=== PATIENT | male | born 1960 | race Caucasian/White ===

== ENCOUNTER 2019-02-23 14:37 | Inpatient (IN) | payer OTHER ==
[~2019-02-23] VITALS: Ht 182.9 cm; Wt 142.9 kg
[2019-02-23] MEDS ORDERED: fentaNYL INJECTION 100 MCG/2 ML AMP IVP ONE (14:45)
[2019-02-23] MEDS ORDERED: NS IV 1000 ML 1,000 ML IV SCH (14:45)
[2019-02-23] MEDS ORDERED: KETOROLAC 30 MG/ML VIAL IVP ONE (14:45)
--- NOTE | 2019-02-23 14:54 | ED Abdominal Pain ---
General Chief Complaint: Abdominal/GI Problems Stated Complaint: ABD/BACK PAIN Nursing Triage Note: TO TRIAGE WITH COMPLAINTS OF ABD PAIN THAT RADIATES INTO BACK STARTING WED. HX OF PANCREATITIS. Sepsis Screen: No Definite Risk Source of Information: Patient Exam Limitations: No Limitations History of Present Illness Date Seen by Provider: Feb 23, 2019 Time Seen by Provider: 14:52 Initial Comments To ER with reports of epigastric abdominal pain that radiates through to his back. This began about 48 hours ago and he does have associated nausea but no vomiting. He has a history of pancreatitis in the remote past without cause identified. This feels similar to that. He denies alcohol use. He is at his cholesterol checked and found to be on the low side. He denies fevers or chills. Primary care is Dr. Dumont. He rates his pain at 8.5 out of 10. Prior history of cholecystectomy Timing/Duration: 1-2 Days Severity/Quality: Moderate Location: Epigastric Radiation: Back Activities at Onset: None Associated Symptoms: Nausea/Vomiting Allergies and Home Medications Allergies Coded Allergies: No Known Drug Allergies (Unverified , 02/23/19) Patient Home Medication List Home Medication List Reviewed: Yes Review of Systems Review of Systems Constitutional: see HPI; No chills, No fever EENTM: No Symptoms Reported Respiratory: No Symptoms Reported Cardiovascular: No Symptoms Reported Gastrointestinal: See HPI, Abdominal Pain, Nausea Genitourinary: No Symptoms Reported Musculoskeletal: see HPI, back pain Skin: no symptoms reported Psychiatric/Neurological: No Symptoms Reported, Emotional Problems Hematologic/Lymphatic: No Symptoms Reported Past Sffbytv-Npglkz-Tepxth Hx Patient Social History Recent Foreign Travel: No Contact w/Someone Who Travel: No Recent Infectious Disease Expo: No Physical Exam Vital Signs Vital Signs - First Documented 02/23/19 14:40 Temp 98.7 Pulse 80 Resp 16 B/P (MAP) 199/87 (124) Pulse Ox 95 O2 Delivery Room Air Capillary Refill : Less Than 3 Seconds Height/Weight/BMI Height: 6'" Weight: 315lbs. oz. [id number]; BMI Method:Stated General Appearance: WD/WN, no apparent distress, other (no distress, obese, ambulatory to room 5, alert and oriented and pleasant) HEENT: PERRL/EOMI, normal ENT inspection Neck: non-tender, full range of motion Respiratory: chest non-tender, lungs clear, normal breath sounds, no respiratory distress Gastrointestinal: normal bowel sounds, soft, tenderness (epigastric) Extremities: normal range of motion, non-tender Neurologic/Psychiatric: alert, normal mood/affect, oriented x 3 Skin: normal color, warm/dry Focused Exam Lactate Level 02/23/19 16:10: Lactic Acid Level Laboratory Tests Test 02/23/19 16:10 Progress/Results/Core Measures Results/Orders Lab Results Laboratory Tests Test 02/23/19 14:55 02/23/19 16:10 Range/Units White Blood Count 25.0 H 4.3-11.0 10^3/uL Red Blood Count 5.80 4.35-5.85 10^6/uL Hemoglobin 17.6 13.3-17.7 G/DL Hematocrit 52 40-54 % Mean Corpuscular Volume 90 80-99 FL Mean Corpuscular Hemoglobin 30 25-34 PG Mean Corpuscular Hemoglobin Concent 34 32-36 G/DL Red Cell Distribution Width 14.7 H 10.0-14.5 % Platelet Count 251 130-400 10^3/uL Mean Platelet Volume 11.6 H 7.4-10.4 FL Neutrophils (%) (Auto) 89 H 42-75 % Lymphocytes (%) (Auto) 7 L 12-44 % Monocytes (%) (Auto) 4 0-12 % Eosinophils (%) (Auto) 0 0-10 % Basophils (%) (Auto) 0 0-10 % Neutrophils # (Auto) 22.3 H 1.8-7.8 X 10^3 Lymphocytes # (Auto) 1.6 1.0-4.0 X 10^3 Monocytes # (Auto) 1.1 H 0.0-1.0 X 10^3 Eosinophils # (Auto) 0.0 0.0-0.3 10^3/uL Basophils # (Auto) 0.0 0.0-0.1 10^3/uL Neutrophils % (Manual) 88 % Lymphocytes % (Manual) 7 % Monocytes % (Manual) 3 % Band Neutrophils 2 % Dohle Bodies SLIGHT Blood Morphology Comment NORMAL Prothrombin Time 13.2 12.2-14.7 SEC INR Comment 1.0 0.8-1.4 Activated Partial Thromboplast Time 30 24-35 SEC Sodium Level 137 135-145 MMOL/L Potassium Level 3.5 L 3.6-5.0 MMOL/L Chloride Level 97 L 98-107 MMOL/L Carbon Dioxide Level 27 21-32 MMOL/L Anion Gap 13 5-14 MMOL/L Blood Urea Nitrogen 8 7-18 MG/DL Creatinine 0.82 0.60-1.30 MG/DL Estimat Glomerular Filtration Rate > 60 BUN/Creatinine Ratio 10 Glucose Level 119 H 70-105 MG/DL Calcium Level 10.5 H 8.5-10.1 MG/DL Corrected Calcium 10.1 8.5-10.1 MG/DL Magnesium Level 2.1 1.8-2.4 MG/DL Total Bilirubin 0.8 0.1-1.0 MG/DL Aspartate Amino Transf (AST/SGOT) 18 5-34 U/L Alanine Aminotransferase (ALT/SGPT) 28 0-55 U/L Alkaline Phosphatase 83 40-136 U/L Myoglobin 41.6 10.0-92.0 NG/ML Troponin I < 0.028 <0.028 NG/ML Total Protein 8.8 H 6.4-8.2 GM/DL Albumin 4.5 3.2-4.5 GM/DL Amylase Level 417 H 25-125 U/L Lipase 1071 H 8-78 U/L My Orders Orders - MELISSA DELVALLE CUSTOMER SERVICES COORDINATOR Cbc With Automated Diff (02/23/19 14:40) Magnesium (02/23/19 14:40) Chest 1 View, Ap/Pa Only (02/23/19 14:40) Cardiac Profile 1 (02/23/19 14:40) Comprehensive Metabolic Panel (02/23/19 14:40) Myoglobin Serum (02/23/19 14:40) Protime With Inr (02/23/19 14:40) Partial Thromboplastin Time (02/23/19 14:40) O2 (02/23/19 14:40) Monitor-Rhythm Ecg Trace Only (02/23/19 14:40) Lipid Panel (02/24/19 06:00) Ed Iv/Invasive Line Start (02/23/19 14:40) Lipase (02/23/19 14:40) Amylase (02/23/19 14:40) Ct Abdomen/Pelvis W (02/23/19 14:45) Ketorolac Injection (Toradol Injection) (02/23/19 14:45) Fentanyl Injection (Sublimaze Injection (02/23/19 14:45) Ns Iv 1000 Ml (Sodium Chloride 0.9%) (02/23/19 14:45) Ondansetron Injection (Zofran Injectio (02/23/19 15:00) Manual Differential (02/23/19 14:55) Blood Culture (02/23/19 15:45) Lactic Acid Analyzer (02/23/19 15:45) Medications Given in ED Current Medications Medications Dose Ordered Sig/Chadd Route Start Time Stop Time Status Last Admin Dose Admin Fentanyl Citrate 50 mcg ONCE ONCE IVP 02/23/19 14:45 02/23/19 14:46 DC 02/23/19 15:03 50 MCG Ketorolac Tromethamine 15 mg ONCE ONCE IVP 02/23/19 14:45 02/23/19 14:46 DC 02/23/19 15:04 15 MG Ondansetron HCl 8 mg ONCE ONCE IVP 02/23/19 15:00 02/23/19 15:01 DC 02/23/19 15:04 8 MG Vital Signs/I&O 02/23/19 14:40 Temp 98.7 Pulse 80 Resp 16 B/P (MAP) 199/87 (124) Pulse Ox 95 O2 Delivery Room Air Blood Pressure Mean: 124 Departure Communication (Admissions) 1618-after Zofran, 15 mg Toradol and 50 Tray grams of fentanyl he states his pain is overall much better controlled. He remained sinus rhythm at 71. Will admit to Dr. De La Vega and consult surgery. She agrees to admit, I also notified Dr. Fletcher who agrees to consult and recommends clear liquid diet. Impression Primary Impression: Pancreatitis Qualified Codes: K85.00 - Idiopathic acute pancreatitis without necrosis or infection Disposition: ADMITTED INPATIENT Condition: Stable Admissions Decision to Admit Reason: Admit from ER (General) Decision to Admit/Date: Feb 23, 2019 Time/Decision to Admit Time: 16:19 Departure-Patient Inst. Referrals: CHANTELL DUMONT MD (PCP) Primary Care Physician MELISSA DELVALLE APRN Feb 23, 2019 14:54
[2019-02-23] MEDS ORDERED: ONDANSETRON 4 MG/2 ML (SDV) Z0FRAN IVP ONE (15:00)
[2019-02-23 15:04] LABS: BASOPHILS % (AUTO) 0 % (0-10); EOSINOPHILS % (AUTO) 0 % (0-10); HEMATOCRIT 52 % (40-54); HEMOGLOBIN 17.6 G/DL (13.3-17.7); LYMPHOCYTES # (AUTO) 1.6 X 10^3 (1.0-4.0); LYMPHOCYTES % (AUTO) 7 % (12-44); MEAN CORPUSCULAR HEMOGLOBIN 30 PG (25-34); MEAN CORPUSCULAR HGB CONC 34 G/DL (32-36); MEAN CORPUSCULAR VOLUME 90 FL (80-99); MEAN PLATELET VOLUME 11.6 FL (7.4-10.4); MONOCYTES # (AUTO) 1.1 X 10^3 (0.0-1.0); MONOCYTES % (AUTO) 4 % (0-12); NEUTROPHILS # (AUTO) 22.3 X 10^3 (1.8-7.8); NEUTROPHILS % (AUTO) 89 % (42-75); PLATELET COUNT 251 10^3/uL (130-400); RED CELL DISTRIBUTION WIDTH 14.7 % (10.0-14.5)
[2019-02-23 15:22] LABS: PROTHROMBIN TIME PATIENT 13.2 SEC (12.2-14.7)
[2019-02-23 15:26] LABS: ALANINE AMINOTRANSFERASE 28 U/L (0-55); ALBUMIN 4.5 GM/DL (3.2-4.5); ALKALINE PHOSPHATASE 83 U/L (40-136); AMYLASE 417 U/L (25-125); BILIRUBIN,TOTAL 0.8 MG/DL (0.1-1.0); BUN/CREATININE RATIO 10; CALCIUM 10.5 MG/DL (8.5-10.1); CARBON DIOXIDE 27 MMOL/L (21-32); CHLORIDE 97 MMOL/L (98-107); CREATININE SERUM 0.82 MG/DL (0.60-1.30); GFR ESTIMATED > 60; GLUCOSE 119 MG/DL (70-105); LIPASE 1071 U/L (8-78); MAGNESIUM 2.1 MG/DL (1.8-2.4); POTASSIUM 3.5 MMOL/L (3.6-5.0); SODIUM 137 MMOL/L (135-145); TOTAL PROTEIN 8.8 GM/DL (6.4-8.2)
[2019-02-23 15:48] LABS: BAND NEUTROPHILS 2 %; LYMPHOCYTES % (MANUAL) 7 %; MONOCYTES % (MANUAL) 3 %; NEUTROPHILS % (MANUAL) 88 %; RBC MORPH NORMAL
--- NOTE | 2019-02-23 16:09 | Diagnostic Imaging Report ---
INDICATION: Epigastric pain. FINDINGS: There is no evidence for basilar pleural fluid. There is no free air beneath the diaphragms. No alveolar consolidation. Heart size is within normal limits. No focal consolidation. IMPRESSION: No acute finding. Dictated by: Dictated on workstation # [id number]
--- NOTE | 2019-02-23 16:09 | Diagnostic Imaging Report ---
PROCEDURE: CT abdomen and pelvis with contrast. TECHNIQUE: Multiple contiguous axial images were obtained through the abdomen and pelvis after administration of intravenous contrast. Auto Exposure Controls were utilized during the CT exam to meet ALARA standards for radiation dose reduction. INDICATION: Epigastric pain x2 days. FINDINGS: Lung bases are clear. There is fatty infiltration of the liver. Gallbladder is surgically absent. There is edema around the pancreas and the anterior pararenal space suggesting acute pancreatitis. Spleen is not enlarged. Adrenals are normal. Kidneys unremarkable. There is minimal calcific atherosclerosis of the aorta. Small bowel is not dilated. Colon is decompressed. There are a few colonic diverticuli but no evidence of diverticulitis. There is a small umbilical hernia containing fat. Prostate is not enlarged. Urinary bladder appears normal. IMPRESSION: Acute pancreatitis. There are no pathologic fluid collections. Dictated by: Dictated on workstation # [id number]
[2019-02-23 16:52] LABS: CHOLESTEROL 139 MG/DL (< 200); HDL CHOLESTEROL 45 MG/DL (40-60); TRIGLYCERIDES 58 MG/DL (<150); VLDL CHOLESTEROL 12 MG/DL (5-40)
[2019-02-23 17:11] VITALS: BP 163/80
--- NOTE | 2019-02-23 17:30 | NUR ---
ABIMAEL AVILA admitted to room 408-1, with an admitting diagnosis of PANCREATITIS, on 02/23/19 from ER, accompanied by AND STAFF.ABIMAEL AVILA introduced to surroundings, call light, bed controls, phone, TV, temperature control, lights, meal times, smoking policy, visitor policy, side rail policy, bathrooms and showers. Patient Rights given to patient in the handbook. ABIMAEL AVILA verbalizes understanding that [facility] is not responsible for the loss or damage to any personal effects or valuables that are kept in the patients posession during their hospitalization. The following Patient Care Plans were discussed with the PACREATITIS AND Discharge Planning. ABIMAEL AVILA verbalizes understanding of Interdisciplinary Patient Education. Patient and/or family were informed about the Rapid Response Team and its purpose.
[2019-02-23] MEDS: fentaNYL INJECTION 100 MCG/2 ML AMP IVP PRN (18:13)
[2019-02-23] MEDS: ONDANSETRON 4 MG/2 ML (SDV) Z0FRAN IVP PRN (18:13)
[2019-02-23] MEDS: LACTATED RINGERS 1,000 ML IV SCH ×2 (18:14→22:22)
[2019-02-23 19:36] VITALS: BP 163/79
--- NOTE | 2019-02-23 20:24 | CONSULTATION REPORT ---
DATE OF SERVICE: 02/23/2019 ADMITTING PHYSICIAN: Anum De La Vega DO. ATTENDING PRIMARY CARE PHYSICIAN: Dr. Job jade. HISTORY OF PRESENT ILLNESS: The patient is a 58-year-old male who presented to the Emergency Department with epigastric pain with radiation towards the back. He states that this began approximately 48 hours ago and was associated with nausea; however, no vomiting. He does have a history of pancreatitis before in the past and he states that there was a workup done; however, there was no etiology identified. He does not drink any alcohol, and his cholesterol has always been in the normal ranges. He is also status post cholecystectomy. A CT scan was performed, which did show pancreatitis; however, does not appear to be severe on the CT scan. He does have an elevated white count of 25, which we are unsure of the etiology of at this time. From the laboratory work that has been done, there is a Pau criteria is 2, which is a low percentage morbidity and mortality. PAST MEDICAL HISTORY: History of pancreatitis. ALLERGIES: No known drug allergies. MEDICATIONS: None. SOCIAL HISTORY: Negative smoke, negative alcohol. FAMILY HISTORY: Noncontributory. VITAL SIGNS: Temperature is 98.7, blood pressure 163/80, pulse 70, respirations 20, and pulse ox 93% on room air. REVIEW OF SYSTEMS: Well-nourished male, currently slightly guarded secondary to the epigastric pain; however, this has been better controlled with IV pain medication. He does not report any nausea, no vomiting. He reports that his bowel movements before the initial pain were normal. He does not report any red blood per rectum nor any dark tarry stools. No fever or chills, no recent inadvertent weight loss. All other review of systems is negative. PHYSICAL EXAMINATION: CHEST: Slightly decreased breath sounds at the bilateral bases. HEART: Regular, no murmurs. EXTREMITIES: No lower extremity edema, negative Homans sign. HEENT: No scleral icterus. NECK: No cervical lymphadenopathy. ABDOMEN: Soft, nondistended. There is pain in the epigastric region upon palpation with voluntary guarding, no rebound. LABORATORY DATA: WBC is 25.0, hemoglobin 17.6, hematocrit 52. BUN is 8, creatinine 0.82, glucose is 119. Her AST is 18. Total bilirubin is normal. Amylase is 417, lipase 1071. ASSESSMENT AND PLAN: A 58-year-old male with a recurrent pancreatitis of unknown etiology. We will proceed with conservative medical management with IV hydration, bowel rest as well as pain control with IV as well as oral pain medication. We will also monitor serial labs and overall clinical exam. Job ID: [id number] DocumentID: [id number] Dictated Date: 02/23/2019 19:29:28 Court Orderly Date: 02/23/2019 20:24:04 Dictated By: EMELYN FOX MD
[2019-02-23] MEDS: HYDROcodone/APAP 10 MG/325 MG (LORTAB) TAB PO PRN (21:36)
[2019-02-23 23:32] VITALS: BP 162/85
[2019-02-24] MEDS: LACTATED RINGERS 1,000 ML IV SCH ×5 (02:34→19:06)
[2019-02-24 03:45] VITALS: BP 169/78
[2019-02-24] MEDS: ONDANSETRON 4 MG/2 ML (SDV) Z0FRAN IVP PRN ×2 (04:24→12:01)
[2019-02-24] MEDS: HYDROcodone/APAP 10 MG/325 MG (LORTAB) TAB PO PRN ×3 (04:24→22:22)
[2019-02-24 05:05] LABS: BASOPHILS % (AUTO) 0 % (0-10); EOSINOPHILS # (AUTO) 0.1 10^3/uL (0.0-0.3); EOSINOPHILS % (AUTO) 0 % (0-10); HEMATOCRIT 47 % (40-54); HEMOGLOBIN 15.6 G/DL (13.3-17.7); LYMPHOCYTES # (AUTO) 1.6 X 10^3 (1.0-4.0); LYMPHOCYTES % (AUTO) 7 % (12-44); MEAN CORPUSCULAR HEMOGLOBIN 30 PG (25-34); MEAN CORPUSCULAR HGB CONC 33 G/DL (32-36); MEAN CORPUSCULAR VOLUME 90 FL (80-99); MEAN PLATELET VOLUME 11.9 FL (7.4-10.4); MONOCYTES # (AUTO) 1.4 X 10^3 (0.0-1.0); MONOCYTES % (AUTO) 6 % (0-12); NEUTROPHILS # (AUTO) 20.2 X 10^3 (1.8-7.8); NEUTROPHILS % (AUTO) 87 % (42-75); PLATELET COUNT 235 10^3/uL (130-400); RED CELL DISTRIBUTION WIDTH 14.7 % (10.0-14.5); WHITE BLOOD COUNT 23.4 10^3/uL (4.3-11.0)
[2019-02-24 05:51] LABS: ALANINE AMINOTRANSFERASE 23 U/L (0-55); ALBUMIN 3.7 GM/DL (3.2-4.5); ALKALINE PHOSPHATASE 71 U/L (40-136); BILIRUBIN,TOTAL 0.9 MG/DL (0.1-1.0); BUN/CREATININE RATIO 10; CALCIUM 9.3 MG/DL (8.5-10.1); CARBON DIOXIDE 23 MMOL/L (21-32); CHLORIDE 99 MMOL/L (98-107); CHOLESTEROL 105 MG/DL (< 200); CREATININE SERUM 0.73 MG/DL (0.60-1.30); GFR ESTIMATED > 60; GLUCOSE 99 MG/DL (70-105); HDL CHOLESTEROL 39 MG/DL (40-60); LIPASE 239 U/L (8-78); POTASSIUM 3.2 MMOL/L (3.6-5.0); SODIUM 136 MMOL/L (135-145); TOTAL PROTEIN 7.2 GM/DL (6.4-8.2); TRIGLYCERIDES 43 MG/DL (<150); VLDL CHOLESTEROL 9 MG/DL (5-40)
[2019-02-24] MEDS: fentaNYL INJECTION 100 MCG/2 ML AMP IVP PRN ×2 (07:35→09:38)
[2019-02-24 08:00] VITALS: BP 181/105
--- NOTE | 2019-02-24 08:26 | History & Physical-Hospitalist ---
History of Present Illness HPI/Chief Complaint CC: Acute pancreatitis HPI: This is a 58-year-old white male clinic patient of Dr. Dumont who presented to [facility] ER due to severe abdominal pain with nausea and vomiting. Upon work-up he was found to have elevated amylase and lipase and CT scan consistent with acute pancreatitis. He reported that he has had a cholecystectomy in the past and then after that he suffered an episode of pancreatitis did not require hospitalization at that time since his works for [employer] and was able to manage it at home with bowel rest but they were unable to evaluate the source of the pancreatitis at that time. Currently Dr. tracey is serving as showroom consultant and at this current time patient feels much better. I did restart some blood pressure medicine since his blood pressure is been very elevated. His amylase and lipase are much improved today. He has been for 36 years does not smoke or drink alcohol and he works at [employer] in [place] at [employer]. Source: patient Exam Limitations: no limitations Date Seen 02/24/19 Time Seen by a Provider: 08:00 Attending Physician Anum De La Vega Maxwell MD Referring Physician Date of Admission Feb 23, 2019 at 15:46 Home Medications & Allergies Home Medications Reviewed patient Home Medication Reconciliation performed by pharmacy medication reconciliations helicopter technician and/or nursing. Patients Allergies have been reviewed. Allergies Allergies Coded Allergies No Known Drug Allergies (Unverified02/23/19) Past Xpyxtri-Kkidbs-Qxljnv Hx Past Med/Social Hx: Reviewed Nursing Past Med/Soc Hx, Reviewed and Corrections made Patient Social History Marrital Status: Employed/Student: employed ([employer] 6 years) Alcohol Use: Denies Use Recreational Drug Use: No Smoking Status: Former Smoker 2nd Hand Smoke Exposure: No Recent Foreign Travel: No Contact w/other who traveled: No Recent Hopitalizations: No Recent Infectious Disease Expo: No Seasonal Allergies Seasonal Allergies: No Past Medical History Surgeries: Gallbladder Cardiac: Hypertension Gastrointestinal: Pancreatitis History of Blood Disorders: No Review of Systems Constitutional: see HPI, malaise, weakness EENTM: no symptoms reported Respiratory: no symptoms reported Cardiovascular: no symptoms reported Gastrointestinal: abdominal pain, heartburn, loss of appetite, nausea, vomiting Genitourinary: no symptoms reported Musculoskeletal: no symptoms reported Skin: no symptoms reported Psychiatric/Neurological: No Symptoms Reported All Other Systems Reviewed Negative Unless Noted: Yes Physical Exam Physical Exam Vital Signs Vital Signs - First Documented 02/23/19 14:40 Temp 98.7 Pulse 80 Resp 16 B/P (MAP) 199/87 (124) Pulse Ox 95 O2 Delivery Room Air Capillary Refill : Less Than 3 Seconds Height, Weight, BMI Height: 6'0.00" Weight: 315lbs. 2.0oz. 142.637953jv; 42.7 BMI Method:Stated General Appearance: No Apparent Distress, WD/WN, Chronically ill Eyes: Right Eye Normal Inspection, Right Eye PERRL HEENT: PERRL/EOMI, TMs Normal, Normal ENT Inspection, Pharynx Normal, Moist Mucous Membranes Neck: Full Range of Motion, Normal Inspection, Non Tender Respiratory: Chest Non Tender, Lungs Clear, Normal Breath Sounds, No Accessory Muscle Use, No Respiratory Distress Cardiovascular: Regular Rate, Rhythm, No Edema, No Gallop, No JVD, No Murmur, Normal Peripheral Pulses Gastrointestinal: Normal Bowel Sounds, No Organomegaly, No Pulsatile Mass, Soft , Tenderness Back: Normal Inspection, No CVA Tenderness, No Vertebral Tenderness Extremity: Normal Capillary Refill, Normal Inspection, Normal Range of Motion, Non Tender, No Calf Tenderness, No Pedal Edema Neurologic/Psychiatric: Alert, Oriented x3, No Motor/Sensory Deficits, Normal Mood/Affect Skin: Normal Color, Warm/Dry Lymphatic: No Adenopathy Results Results/Procedures Labs Laboratory Tests 02/23/19 14:55 02/24/19 04:25 Patient resulted labs reviewed. Assessment/Plan Admission Diagnosis Assessment: Acute pancreatitis History of pancreatitis etiology unknown Previous cholecystectomy No alcohol consumption Hypertension Obesity Hypokalemia Plan: Check lipid waste treatment operator amylase and lipase Bowel rest IV fluids Supportive care Antiemetics Pain medication IV potassium replacement Admission Status: Inpatient Order (span 2 midnights) Reason for Inpatient Admission: Acute pancreatitis will require 3 days of n.p.o. status and supportive care and pain medication along with surgery consultation Diagnosis/Problems Diagnosis/Problems (1) Pancreatitis Status: Acute Qualifiers: Chronicity: acute Pancreatitis type: idiopathic Acute pancreatitis complication: unspecified Qualified Codes: K85.00 - Idiopathic acute pancreatitis without necrosis or infection (2) Hypertension Status: Chronic Qualifiers: Hypertension type: essential hypertension Qualified Codes: I10 - Essential (primary) hypertension (3) History of pancreatitis Status: Chronic (4) History of laparoscopic cholecystectomy Status: Chronic (5) Obesity Status: Chronic Qualifiers: Obesity type: due to excess calories Obesity classification: adult class 3 (BMI >= 40) Serious obesity comorbidity presence: without serious comorbidity Body mass index: BMI 40.0-44.9 Qualified Codes: E66.01 - Morbid (severe) obesity due to excess calories; Z68.41 - Body mass index (BMI) 40.0- 44.9, adult (6) Leukocytosis Status: Acute Qualifiers: Leukocytosis type: leukemoid reaction Qualified Codes: D72.823 - Leukemoid reaction (7) Hypokalemia Status: Acute Clinical Quality Measures DVT/VTE Risk/Contraindication: Risk Factor Score Per Nursin RFS Level Per Nursing on Admit: 3=High ANUM DE LA VEGA DO Feb 24, 2019 08:26
--- NOTE | 2019-02-24 08:30 | Diagnostic Imaging Report ---
Indication: Chest pain, followup pancreatitis. Comparison: 02/23/2019. Discussion: Single portable upright view of the chest was obtained. Stable normal heart size. No focal consolidation, pleural fluid, or pneumothorax. No osseous abnormality. Impression: 1. Stable negative portable chest. Dictated by: Dictated on workstation # [id number]
[2019-02-24] MEDS ORDERED: amLODIPine 5 MG (NORVASC) TAB ONE (09:28)
[2019-02-24] MEDS ORDERED: amLODIPine 5 MG (NORVASC) TAB PO NR (09:30)
[2019-02-24] MEDS: PANTOPRAZOLE 40 MG (PROTONIX) VIAL IV SCH (09:37)
[2019-02-24] MEDS ORDERED: MAGNESIUM 1 GM/100 ML IVPB 100 ML IV ONE (11:00)
--- NOTE | 2019-02-24 11:09 | Progress Note (SOAP) ---
Subjective Date Seen by a Provider: Feb 24, 2019 Time Seen by a Provider: 10:25 Subjective/Events-last exam Patient seen with Dr. Fletcher. Patient reports doing ok. Still having LUQ abdominal pain as well as nausea. Reports was drinking clear liquids but pain and nausea occurred. Patient reports that he has since slowed down with the liquids. Focused Exam Lactate Level 02/23/19 16:10: Lactic Acid Level 0.93 Objective Exam Vital Signs Date Time Temp Pulse Resp B/P (MAP) Pulse Ox O2 Delivery O2 Flow Rate FiO2 02/24/19 08:10 90 Room Air 02/24/19 08:00 98.1 75 18 181/105 (130) 93 Room Air 02/24/19 07:00 73 02/24/19 06:57 93 Room Air 02/24/19 03:45 100.0 76 20 169/78 (108) 93 NIV CPAP 02/24/19 02:30 91 Room Air 02/24/19 01:00 78 02/23/19 23:32 98.1 78 20 162/85 (110) 91 NIV CPAP 02/23/19 22:57 90 Room Air 02/23/19 20:30 90 Room Air 02/23/19 20:03 78 02/23/19 19:36 99.8 81 20 163/79 (107) 93 NIV CPAP 02/23/19 18:57 Room Air 02/23/19 18:20 93 Room Air 02/23/19 17:11 98.7 70 20 163/80 93 Room Air 02/23/19 16:58 98.7 80 16 199/87 95 02/23/19 16:52 98.7 80 16 199/87 (124) 95 02/23/19 14:40 98.7 80 16 199/87 (124) 95 Room Air I & O 02/24/19 07:00 Intake Total 3750 ml Output Total 1300 ml Balance 2450 ml Capillary Refill : Less Than 3 Seconds General Appearance: No Apparent Distress, WD/WN Neck: Full Range of Motion, Normal Inspection, Non Tender, Supple Respiratory: Lungs Clear, No Accessory Muscle Use, No Respiratory Distress Cardiovascular: Regular Rate, Rhythm, No Edema Gastrointestinal: normal bowel sounds, soft, tenderness Extremity: Normal Capillary Refill, Normal Inspection, Normal Range of Motion Neurologic/Psychiatric: Alert, Oriented x3 Skin: Normal Color, Warm/Dry Results Lab Laboratory Tests 02/23/19 14:55: White Blood Count 25.0H, Red Blood Count 5.80, Hemoglobin 17.6, Hematocrit 52, Mean Corpuscular Volume 90, Mean Corpuscular Hemoglobin 30, Mean Corpuscular Hemoglobin Concent 34, Red Cell Distribution Width 14.7H, Platelet Count 251, Mean Platelet Volume 11.6H, Neutrophils (%) (Auto) 89H, Lymphocytes (%) (Auto) 7L, Monocytes (%) (Auto) 4, Eosinophils (%) (Auto) 0, Basophils (%) (Auto) 0, Neutrophils # (Auto) 22.3H, Lymphocytes # (Auto) 1.6, Monocytes # (Auto) 1.1H, Eosinophils # (Auto) 0.0, Basophils # (Auto) 0.0, Neutrophils % (Manual) 88, Lymphocytes % (Manual) 7, Monocytes % (Manual) 3, Band Neutrophils 2, Dohle Bodies SLIGHT, Blood Morphology Comment NORMAL, Prothrombin Time 13.2, INR Comment 1.0, Activated Partial Thromboplast Time 30, Sodium Level 137, Potassium Level 3.5L, Chloride Level 97L, Carbon Dioxide Level 27, Anion Gap 13 , Blood Urea Nitrogen 8, Creatinine 0.82, Estimat Glomerular Filtration Rate > 60, BUN/Creatinine Ratio 10, Glucose Level 119H, Calcium Level 10.5H, Corrected Calcium 10.1, Magnesium Level 2.1, Total Bilirubin 0.8, Aspartate Amino Transf ( AST/SGOT) 18, Alanine Aminotransferase (ALT/SGPT) 28, Alkaline Phosphatase 83, Myoglobin 41.6, Troponin I < 0.028, Total Protein 8.8H, Albumin 4.5, Triglycerides Level 58, Cholesterol Level 139, LDL Cholesterol Direct 85, VLDL Cholesterol 12, HDL Cholesterol 45, Amylase Level 417H, Lipase 1071H 02/23/19 16:10: Lactic Acid Level 0.93 02/24/19 04:25: White Blood Count 23.4H, Red Blood Count 5.25, Hemoglobin 15.6, Hematocrit 47, Mean Corpuscular Volume 90, Mean Corpuscular Hemoglobin 30, Mean Corpuscular Hemoglobin Concent 33, Red Cell Distribution Width 14.7H, Platelet Count 235, Mean Platelet Volume 11.9H, Neutrophils (%) (Auto) 87H, Lymphocytes (%) (Auto) 7L, Monocytes (%) (Auto) 6, Eosinophils (%) (Auto) 0, Basophils (%) (Auto) 0, Neutrophils # (Auto) 20.2H, Lymphocytes # (Auto) 1.6, Monocytes # (Auto) 1.4H, Eosinophils # (Auto) 0.1, Basophils # (Auto) 0.0, Sodium Level 136, Potassium Level 3.2L, Chloride Level 99, Carbon Dioxide Level 23, Anion Gap 14, Blood Urea Nitrogen 7, Creatinine 0.73, Estimat Glomerular Filtration Rate > 60, BUN/ Creatinine Ratio 10, Glucose Level 99, Calcium Level 9.3, Corrected Calcium 9.5 , Total Bilirubin 0.9, Aspartate Amino Transf (AST/SGOT) 17, Alanine Aminotransferase (ALT/SGPT) 23, Alkaline Phosphatase 71, Total Protein 7.2, Albumin 3.7, Triglycerides Level 43, Cholesterol Level 105, LDL Cholesterol Direct 57, VLDL Cholesterol 9, HDL Cholesterol 39L, Lipase 239H Assessment/Plan Assessment/Plan Assess & Plan/Chief Complaint A 58-year-old male with a recurrent pancreatitis of unknown etiology. Will continue with medical management. IV fluids, pain, and nausea medication. Bowel rest Monitor labs. Clinical Quality Measures DVT/VTE Risk/Contraindication: Risk Factor Score Per Nursin RFS Level Per Nursing on Admit: 3=High BRIANA ARIAS APRN Feb 24, 2019 11:08
[2019-02-24 12:00] VITALS: BP 198/99
[2019-02-24] MEDS: POTASSIUM CL 10MEQ/50ML IVPB 50 ML IV SCH ×4 (12:01→15:32)
[2019-02-24] MEDS: cloNIDine 0.1 MG (CATAPRES) TAB PO PRN ×2 (12:01→19:46)
[2019-02-24 13:18] LABS: BILIRUBIN,URINE NEGATIVE (NEGATIVE); CLARITY,URINE CLEAR; COLOR,URINE YELLOW; GLUCOSE, URINE (UA) NEGATIVE (NEGATIVE); KETONES,URINE 3+ (NEGATIVE); LEUKOCYTE ESTERASE ,URINE NEGATIVE (NEGATIVE); NITRITE,URINE NEGATIVE (NEGATIVE); PH,URINE 7 (5-9); PROTEIN,URINE 1+ (NEGATIVE); UROBILINOGEN,URINE NORMAL (NORMAL)
[2019-02-24 13:24] LABS: BACTERIA,URINE NEGATIVE /HPF
[2019-02-24 15:24] VITALS: BP 171/83
[2019-02-24] MEDS ORDERED: DILT240C87 PO (16:51)
[2019-02-24] MEDS ORDERED: LOSA50TA63 PO (16:55)
[2019-02-24] MEDS ORDERED: HYDR12.56 PO (16:55)
[2019-02-24] MEDS ORDERED: CETI10TA17 PO (16:56)
[2019-02-24 19:22] VITALS: BP 180/82
--- NOTE | 2019-02-24 19:40 | NUR ---
THIS RN CONTACTED DR. AVALOS IN REGARDS TO THE PT'S TEMPERATURE BEING 101.5. ORDERS RECEIVED FOR TYLENOL 650 MG PO Q6H PRN. ORDERS READ BACK AND VERIFIED.
[2019-02-24] MEDS ORDERED: ACETAMINOPHEN 325 MG TABLET ONE (19:42)
[2019-02-24] MEDS ORDERED: ACETAMINOPHEN 325 MG TABLET PO PRN (19:45)
[2019-02-24 23:49] VITALS: BP 150/76
[2019-02-25] MEDS: LACTATED RINGERS 1,000 ML IV SCH ×4 (01:52→23:26)
[2019-02-25] MEDS: HYDROcodone/APAP 10 MG/325 MG (LORTAB) TAB PO PRN ×4 (02:24→20:11)
[2019-02-25 04:57] VITALS: BP 183/88
[2019-02-25 05:13] LABS: HEMOGLOBIN 14.5 G/DL (13.3-17.7); RED CELL DISTRIBUTION WIDTH 14.4 % (10.0-14.5); WHITE BLOOD COUNT 19.4 10^3/uL (4.3-11.0)
[2019-02-25 05:49] LABS: ALANINE AMINOTRANSFERASE 28 U/L (0-55); ALBUMIN 3.4 GM/DL (3.2-4.5); ALKALINE PHOSPHATASE 67 U/L (40-136); BILIRUBIN,TOTAL 0.8 MG/DL (0.1-1.0); BUN/CREATININE RATIO 11; CARBON DIOXIDE 25 MMOL/L (21-32); CHLORIDE 101 MMOL/L (98-107); CREATININE SERUM 0.66 MG/DL (0.60-1.30); GFR ESTIMATED > 60; GLUCOSE 89 MG/DL (70-105); LIPASE 39 U/L (8-78); POTASSIUM 3.3 MMOL/L (3.6-5.0); SODIUM 139 MMOL/L (135-145); TOTAL PROTEIN 6.6 GM/DL (6.4-8.2)
--- NOTE | 2019-02-25 07:13 | Progress Note-Hospitalist ---
Subjective HPI/CC On Admission Date Seen by Provider: Feb 25, 2019 Time Seen by Provider: 06:30 CC: Acute pancreatitis HPI: This is a 58-year-old white male clinic patient of Dr. Dumont who presented to [facility] ER due to severe abdominal pain with nausea and vomiting. Upon work-up he was found to have elevated amylase and lipase and CT scan consistent with acute pancreatitis. He reported that he has had a cholecystectomy in the past and then after that he suffered an episode of pancreatitis did not require hospitalization at that time since his works for [employer] and was able to manage it at home with bowel rest but they were unable to evaluate the source of the pancreatitis at that time. Currently Dr. tracey is serving as eap consultant and at this current time patient feels much better. I did restart some blood pressure medicine since his blood pressure is been very elevated. His amylase and lipase are much improved today. He has been for 36 years does not smoke or drink alcohol and he works at [employer] in [place] at the [employer]. Subjective/Events-last exam Patient doing a little better but the abdominal pain continues Will discontinue telemetry Remains n.p.o. Reviewed Dr. Fletcher note We will advance to a low-fat diet Etiology of recurrent pancreatitis is unknown Blood pressure mildly elevated so we will monitor that closely Eating and drinking well before this struck him. Labs noted and lipase normal Review of Systems Gastrointestinal: Abdominal Pain Focused Exam Lactate Level 02/23/19 16:10: Lactic Acid Level 0.93 Objective Exam Vital Signs Vital Signs Date Time Temp Pulse Resp B/P (MAP) Pulse Ox O2 Delivery O2 Flow Rate FiO2 02/25/19 14:15 Room Air 02/25/19 13:00 68 02/25/19 12:00 98.8 20 160/97 (118) 95 02/24/19 19:56 2.00 Capillary Refill : Less Than 3 Seconds General Appearance: No Apparent Distress, WD/WN, Chronically ill HEENT: PERRL/EOMI, TMs Normal, Normal ENT Inspection, Pharynx Normal, Moist Mucous Membranes Neck: Full Range of Motion, Normal Inspection, Non Tender Respiratory: Chest Non Tender, Lungs Clear, Normal Breath Sounds, No Accessory Muscle Use, No Respiratory Distress Cardiovascular: Regular Rate, Rhythm, No Edema, No Gallop, No JVD, No Murmur, Normal Peripheral Pulses Gastrointestinal: Normal Bowel Sounds, No Organomegaly, No Pulsatile Mass, Soft , Tenderness Back: Normal Inspection, No CVA Tenderness, No Vertebral Tenderness Extremity: Normal Capillary Refill, Normal Inspection, Normal Range of Motion, Non Tender, No Calf Tenderness, No Pedal Edema Neurologic/Psychiatric: Alert, Oriented x3, No Motor/Sensory Deficits, Normal Mood/Affect Skin: Normal Color, Warm/Dry Lymphatic: No Adenopathy Results/Procedures Lab Laboratory Tests 02/25/19 04:10 Patient resulted labs reviewed. 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 Advance diet to low fat IV fluids Supportive care Antiemetics Pain medication IV potassium replacement Diagnosis/Problems Diagnosis/Problems (1) Pancreatitis Status: Acute Qualifiers: Chronicity: acute Pancreatitis type: idiopathic Acute pancreatitis complication: unspecified Qualified Codes: K85.00 - Idiopathic acute pancreatitis without necrosis or infection (2) Hypertension Status: Chronic Qualifiers: Hypertension type: essential hypertension Qualified Codes: I10 - Essential (primary) hypertension (3) History of pancreatitis Status: Chronic (4) History of laparoscopic cholecystectomy Status: Chronic (5) Obesity Status: Chronic Qualifiers: Obesity type: due to excess calories Obesity classification: adult class 3 (BMI >= 40) Serious obesity comorbidity presence: without serious comorbidity Body mass index: BMI 40.0-44.9 Qualified Codes: E66.01 - Morbid (severe) obesity due to excess calories; Z68.41 - Body mass index (BMI) 40.0- 44.9, adult (6) Leukocytosis Status: Acute Qualifiers: Leukocytosis type: leukemoid reaction Qualified Codes: D72.823 - Leukemoid reaction (7) Hypokalemia Status: Acute Clinical Quality Measures DVT/VTE Risk/Contraindication: Risk Factor Score Per Nursin RFS Level Per Nursing on Admit: 3=High VINAYAK AVALOS DO Feb 25, 2019 07:13
[2019-02-25 08:00] VITALS: BP 165/95
[2019-02-25] MEDS: cloNIDine 0.1 MG (CATAPRES) TAB PO PRN ×2 (08:23→15:38)
[2019-02-25] MEDS: PANTOPRAZOLE 40 MG (PROTONIX) VIAL IV SCH (10:22)
[2019-02-25] MEDS: POTASSIUM CL 10MEQ/50ML IVPB 50 ML IV SCH ×4 (10:23→14:31)
--- NOTE | 2019-02-25 10:47 | Progress Note (SOAP) ---
Subjective Date Seen by a Provider: Feb 25, 2019 Time Seen by a Provider: 10:35 Subjective/Events-last exam Patient seen with Dr. Fletcher. Patient reports still having abdominal pain and nausea but reports that it is improving. No vomiting. No chest pain or SOB. Tolerating some liquids. Focused Exam Lactate Level 02/23/19 16:10: Lactic Acid Level 0.93 Objective Exam Vital Signs Date Time Temp Pulse Resp B/P (MAP) Pulse Ox O2 Delivery O2 Flow Rate FiO2 02/25/19 08:00 98.9 74 18 165/95 (118) 95 Room Air 02/25/19 07:00 66 02/25/19 06:40 94 Room Air 02/25/19 04:57 99.4 73 18 183/88 (119) 97 NIV CPAP 02/25/19 02:13 90 Room Air 02/25/19 01:00 67 02/24/19 23:49 96.8 74 18 150/76 (100) 95 NIV CPAP 02/24/19 22:17 92 Room Air 02/24/19 20:20 96.9 02/24/19 20:00 90 Room Air 02/24/19 19:56 92 NIV CPAP 2.00 02/24/19 19:46 101.5 02/24/19 19:22 101.5 99 25 180/82 (114) 91 NIV CPAP 02/24/19 19:00 89 02/24/19 18:41 92 Room Air 02/24/19 15:24 98.6 91 15 171/83 (112) 91 Room Air 02/24/19 14:51 92 Room Air 02/24/19 12:44 81 02/24/19 12:00 101.1 97 18 198/99 (132) 91 Room Air 02/24/19 11:15 92 Room Air I & O 02/25/19 07:00 Intake Total 2550 ml Output Total 1900 ml Balance 650 ml Capillary Refill : Less Than 3 Seconds General Appearance: No Apparent Distress, WD/WN Neck: Full Range of Motion, Normal Inspection, Supple Respiratory: Lungs Clear, No Accessory Muscle Use, No Respiratory Distress Cardiovascular: Regular Rate, Rhythm, No Edema Gastrointestinal: normal bowel sounds, soft, tenderness Extremity: Normal Capillary Refill, Normal Inspection, Normal Range of Motion Neurologic/Psychiatric: Alert, Oriented x3 Skin: Normal Color, Warm/Dry Results Lab Laboratory Tests 02/24/19 12:55: Urine Color YELLOW, Urine Clarity CLEAR, Urine pH 7, Urine Specific [place] 1.010L, Urine Protein 1+H, Urine Glucose (UA) NEGATIVE, Urine Ketones 3+H, Urine Nitrite NEGATIVE, Urine Bilirubin NEGATIVE, Urine Urobilinogen NORMAL, Urine Leukocyte Esterase NEGATIVE, Urine RBC (Auto) 3+H, Urine RBC 5-10H, Urine WBC NONE, Urine Squamous Epithelial Cells NONE, Urine Crystals NONE, Urine Bacteria NEGATIVE, Urine Casts NONE, Urine Mucus NEGATIVE, Urine Culture Indicated NO 02/25/19 04:10: White Blood Count 19.4H, Red Blood Count 4.77, Hemoglobin 14.5, Hematocrit 44, Mean Corpuscular Volume 92, Mean Corpuscular Hemoglobin 30, Mean Corpuscular Hemoglobin Concent 33, Red Cell Distribution Width 14.4, Platelet Count 193, Mean Platelet Volume 12.0H, Sodium Level 139, Potassium Level 3.3L, Chloride Level 101, Carbon Dioxide Level 25, Anion Gap 13, Blood Urea Nitrogen 7, Creatinine 0.66, Estimat Glomerular Filtration Rate > 60, BUN/Creatinine Ratio 11, Glucose Level 89, Calcium Level 9.0, Corrected Calcium 9.5, Total Bilirubin 0.8, Aspartate Amino Transf (AST/SGOT) 19, Alanine Aminotransferase (ALT/SGPT) 28, Alkaline Phosphatase 67, Total Protein 6.6, Albumin 3.4, Lipase 39 Microbiology 02/23/19 Blood Culture - Preliminary, Resulted No growth Assessment/Plan Assessment/Plan Assess & Plan/Chief Complaint A 58-year-old male with a recurrent pancreatitis of unknown etiology. Will continue with medical management. IV fluids, pain, and nausea medication. Bowel rest Monitor labs. Lipase WNL and WBC improving. Will advance to low fat diet. Clinical Quality Measures DVT/VTE Risk/Contraindication: Risk Factor Score Per Nursin RFS Level Per Nursing on Admit: 3=BRIANA Mckeon CRM MARKETING SPECIALIST Feb 25, 2019 10:47
[2019-02-25 12:00] VITALS: BP 160/97
[2019-02-25 15:27] VITALS: BP 188/94
[2019-02-25] MEDS: ENOXAPARIN 40 MG/0.4 ML (LOVENOX) SYR SC SCH (18:09)
[2019-02-25 19:09] VITALS: BP 176/90
[2019-02-25 23:28] VITALS: BP 160/90
[2019-02-26] MEDS: cloNIDine 0.1 MG (CATAPRES) TAB PO PRN ×2 (00:38→11:30)
[2019-02-26] MEDS: fentaNYL INJECTION 100 MCG/2 ML AMP IVP PRN (00:39)
[2019-02-26 04:12] VITALS: BP 150/86
[2019-02-26] MEDS: LACTATED RINGERS 1,000 ML IV SCH (06:00)
[2019-02-26] MEDS: ENOXAPARIN 40 MG/0.4 ML (LOVENOX) SYR SC SCH (06:01)
[2019-02-26 06:57] LABS: BASOPHILS % (AUTO) 0 % (0-10); EOSINOPHILS # (AUTO) 0.5 10^3/uL (0.0-0.3); EOSINOPHILS % (AUTO) 3 % (0-10); HEMATOCRIT 44 % (40-54); HEMOGLOBIN 14.2 G/DL (13.3-17.7); LYMPHOCYTES # (AUTO) 1.5 X 10^3 (1.0-4.0); LYMPHOCYTES % (AUTO) 9 % (12-44); MEAN CORPUSCULAR HEMOGLOBIN 30 PG (25-34); MEAN CORPUSCULAR HGB CONC 33 G/DL (32-36); MEAN CORPUSCULAR VOLUME 92 FL (80-99); MEAN PLATELET VOLUME 12.1 FL (7.4-10.4); MONOCYTES # (AUTO) 1.1 X 10^3 (0.0-1.0); MONOCYTES % (AUTO) 7 % (0-12); NEUTROPHILS # (AUTO) 13.7 X 10^3 (1.8-7.8); NEUTROPHILS % (AUTO) 81 % (42-75); PLATELET COUNT 214 10^3/uL (130-400); RED CELL DISTRIBUTION WIDTH 14.2 % (10.0-14.5); WHITE BLOOD COUNT 16.8 10^3/uL (4.3-11.0)
[2019-02-26 07:20] LABS: ALANINE AMINOTRANSFERASE 41 U/L (0-55); ALBUMIN 3.5 GM/DL (3.2-4.5); ALKALINE PHOSPHATASE 98 U/L (40-136); BILIRUBIN,TOTAL 0.8 MG/DL (0.1-1.0); BUN/CREATININE RATIO 9; CALCIUM 9.4 MG/DL (8.5-10.1); CARBON DIOXIDE 27 MMOL/L (21-32); CHLORIDE 100 MMOL/L (98-107); CREATININE SERUM 0.69 MG/DL (0.60-1.30); GFR ESTIMATED > 60; GLUCOSE 101 MG/DL (70-105); LIPASE 23 U/L (8-78); POTASSIUM 3.3 MMOL/L (3.6-5.0); SODIUM 138 MMOL/L (135-145); TOTAL PROTEIN 7.1 GM/DL (6.4-8.2)
[2019-02-26 07:43] VITALS: BP 170/85
[2019-02-26] MEDS: POTASSIUM CL 10MEQ/50ML IVPB 50 ML IV SCH ×2 (09:11→11:00)
[2019-02-26] MEDS: PANTOPRAZOLE 40 MG (PROTONIX) VIAL IV SCH (09:11)
--- NOTE | 2019-02-26 10:31 | Discharge Instructions ---
Discharge [facility] Discharge Medications Continued Medications: Cetirizine HCl (Cetirizine HCl) 10 Mg Tablet 10 MG PO DAILY, TAB Diltiazem HCl (Diltiazem ER) 240 Mg Capsule.er 1 TAB PO DAILY Losartan Potassium (Losartan Potassium) 50 Mg Tablet 1 TAB PO DAILY Discontinued Medications: Hydrochlorothiazide (Hydrochlorothiazide) 12.5 Mg Tablet 12.5 MG PO DAILY, TAB Patient Instructions Goal/Follow Up Appt: Follow up with Dr. Dumont on Tuesday at 1:30 pm. Patient Instructions: Stop taking hydrochlorothiazide for now, as it can possibly cause pancreatitis. Return to [facility] For: Inability to keep down liquids Activity & Diet Discharge Diet: Avoid Fatty Foods Activity as Tolerated: Yes Copy Copies To 1: MINESH,DARCY POMPA MD, MD Feb 26, 2019 10:30
--- NOTE | 2019-02-26 10:34 | Discharge Summary ---
Diagnosis/Chief Complaint Date of Admission Feb 23, 2019 at 15:46 Date of Discharge Feb 26, 2019 Admission Diagnosis Admission Diagnosis Acute pancreatitis History of pancreatitis etiology unknown Previous cholecystectomy No alcohol consumption Hypertension Obesity Hypokalemia Discharge Diagnosis Acute pancreatitis- resolved without complication, tolerating low fat diet at d/ c, stopped HCTZ on discharge which can be associated with pancreatitis given unclear etiology (history of cholecystectomy, no alcohol use, denies hypertriglyceridemia). Hypertension- resumed home BP meds on d/c except for HCTZ as noted above. Hypokalemia- replaced Chief Complaint/HPI Chief Complaint/HPI From Dr. De La Vega's H&P: This is a 58-year-old white male clinic patient of Dr. Dumont who presented to [facility] ER due to severe abdominal pain with nausea and vomiting. Upon work-up he was found to have elevated amylase and lipase and CT scan consistent with acute pancreatitis. He reported that he has had a cholecystectomy in the past and then after that he suffered an episode of pancreatitis did not require hospitalization at that time since his works for [employer] and was able to manage it at home with bowel rest but they were unable to evaluate the source of the pancreatitis at that time. Currently Dr. tracey is serving as contaminated land consultant and at this current time patient feels much better. I did restart some blood pressure medicine since his blood pressure is been very elevated. His amylase and lipase are much improved today. He has been for 36 years does not smoke or drink alcohol and he works at [employer] in [place] at the [employer]. Discharge Summary-Simple/Stand Consultations Surgery/Dr. Fletcher Discharge Physical Examination Allergies: Coded Allergies: No Known Drug Allergies (Unverified , 02/23/19) Vitals & I&Os Vital Sign - Last 12Hours Date Time Temp Pulse Resp B/P (MAP) Pulse Ox O2 Delivery O2 Flow Rate FiO2 02/26/19 08:09 96 Room Air 02/26/19 07:43 99.2 60 18 170/85 (113) 02/26/19 02:43 2.00 Intake and Output 02/26/19 00:00 Intake Total 2490 ml Output Total 2625 ml Balance -135 ml General Appearance: Alert, No Acute Distress Respiratory: Clear to Auscultation, Normal Air Movement Cardiovascular: Regular Rate, No Murmurs Abdominal: Normal Bowel Sounds, Soft, No Tenderness Neuro: Normal Speech Psych/Mental Status: Mental Status NL Hospital Course See final discharge diagnosis. Labs Laboratory Tests Test 02/25/19 04:10 02/26/19 05:45 Range/Units White Blood Count 19.4 H 16.8 H 4.3-11.0 10^3/uL Red Blood Count 4.77 4.73 4.35-5.85 10^6/uL Hemoglobin 14.5 14.2 13.3-17.7 G/DL Hematocrit 44 44 40-54 % Mean Corpuscular Volume 92 92 80-99 FL Mean Corpuscular Hemoglobin 30 30 25-34 PG Mean Corpuscular Hemoglobin Concent 33 33 32-36 G/DL Red Cell Distribution Width 14.4 14.2 10.0-14.5 % Platelet Count 193 214 130-400 10^3/uL Mean Platelet Volume 12.0 H 12.1 H 7.4-10.4 FL Sodium Level 139 138 135-145 MMOL/L Potassium Level 3.3 L 3.3 L 3.6-5.0 MMOL/L Chloride Level 101 100 98-107 MMOL/L Carbon Dioxide Level 25 27 21-32 MMOL/L Anion Gap 13 11 5-14 MMOL/L Blood Urea Nitrogen 7 6 L 7-18 MG/DL Creatinine 0.66 0.69 0.60-1.30 MG/DL Estimat Glomerular Filtration Rate > 60 > 60 BUN/Creatinine Ratio 11 9 Glucose Level 89 101 70-105 MG/DL Calcium Level 9.0 9.4 8.5-10.1 MG/DL Corrected Calcium 9.5 9.8 8.5-10.1 MG/DL Total Bilirubin 0.8 0.8 0.1-1.0 MG/DL Aspartate Amino Transf (AST/SGOT) 19 30 5-34 U/L Alanine Aminotransferase (ALT/SGPT) 28 41 0-55 U/L Alkaline Phosphatase 67 98 40-136 U/L Total Protein 6.6 7.1 6.4-8.2 GM/DL Albumin 3.4 3.5 3.2-4.5 GM/DL Lipase 39 23 8-78 U/L Neutrophils (%) (Auto) 81 H 42-75 % Lymphocytes (%) (Auto) 9 L 12-44 % Monocytes (%) (Auto) 7 0-12 % Eosinophils (%) (Auto) 3 0-10 % Basophils (%) (Auto) 0 0-10 % Neutrophils # (Auto) 13.7 H 1.8-7.8 X 10^3 Lymphocytes # (Auto) 1.5 1.0-4.0 X 10^3 Monocytes # (Auto) 1.1 H 0.0-1.0 X 10^3 Eosinophils # (Auto) 0.5 H 0.0-0.3 10^3/uL Basophils # (Auto) 0.0 0.0-0.1 10^3/uL Discharge Instructions to patient/family Please see electronic discharge instructions given to patient. Discharge Medications Reviewed and agree with Discharge Medication list on patient's Discharge Instruction sheet Clinical Quality Measures DVT/VTE Risk/Contraindication: Risk Factor Score Per Nursin RFS Level Per Nursing on Admit: 3=High Copy Copies To 1: SELF,DARCY POMPA MD, MD Feb 26, 2019 10:33
[2019-02-26 11:26] VITALS: BP 182/90
[2019-02-26 11:45] VITALS: BP 182/90
== END 2019-02-26 11:45 | disposition home or self-care (01) | DRG 439 ==
LOC: ER 14:38 → 4TH 15:46
PROVIDERS: ADMIT Internal Medicine; ATTEND Family Medicine
DX: K85.00 Idiopathic acute pancreatitis without necrosis or infection (principal); I10 Essential (primary) hypertension; E66.01 Morbid (severe) obesity due to excess calories; Z68.41 Body mass index [BMI] 40.0-44.9, adult; D72.823 Leukemoid reaction; E87.6 Hypokalemia; Z87.891 Personal history of nicotine dependence
CPT/HCPCS: 36415; 71045; 74177; 80053; 80061; 81000; 82150; 83605; 83690; 83735; 83874; 84484; 85007; 85025; 85027; 85610; 85730; 87040; 93041; 94760; 96361; 96374; 96375

== ENCOUNTER 2021-10-17 20:27 | Outpatient (CLI) | payer OTHER ==
[~2021-10-17 20:27] MED LIST: CETI10TA17 PO; DILT240C87 PO; HYDR12.56 PO; LOSA50TA63 PO
== END 2021-10-18 05:30 | disposition home or self-care (01) ==
LOC: SLEEP 20:27
PROVIDERS: ATTEND Family Medicine
DX: Z01.818 Encounter for other preprocedural examination (principal); G47.30 Sleep apnea, unspecified
CPT/HCPCS: 95811